=== PATIENT | female | born 1990 | race Caucasian/White ===

== ENCOUNTER 2018-03-29 11:46 | Emergency (ER) | payer BC ==
--- NOTE | 2018-03-29 12:03 | ERPHSYRPT ---
- History of Present Illness Time Seen by Provider: 03/29/18 12:03 Source: patient, family Exam Limitations: no limitations Physician History: The patient is a 27-year-old female with her complaining that she accidentally missed the outside step at her home yesterday evening at 11:30 PM, causing her to fall onto the outer aspect of her left foot. She went to bed immediately afterwards. She woke up this morning with swelling and pain in her left foot. She has not been able to walk on it. She took an Excedrin at 8:00 this morning. She did not put ice on the injured foot because it hurt too much. Occurred: yesterday Reason for Fall: lost balance, fell from height Injuries/Pain Location: lower extremity (left foot) Loss of Consciousness: no loss of consciousness Quality: sharpness, stabbing Severity of Pain-Max: moderate Severity of Pain-Current: moderate Modifying Factors: Improves With: nothing Associated Symptoms (Fall): trouble walking Allergies/Adverse Reactions: No Known Drug Allergies Allergy (Verified 03/29/18 12:13) Home Medications: No Home Meds [No Home Meds] 1 ea UD 01/08/15 [History] Hx Tetanus, Diphtheria Vaccination/Date Given: Yes Hx Influenza Vaccination/Date Given: No Hx Pneumococcal Vaccination/Date Given: No - Review of Systems Constitutional: No Fever, No Chills Eyes: No Symptoms Ears, Nose, & Throat: No Symptoms Respiratory: No Cough, No Dyspnea Cardiac: No Chest Pain, No Edema, No Syncope Abdominal/Gastrointestinal: No Abdominal Pain, No Nausea, No Vomiting, No Diarrhea Genitourinary Symptoms: No Dysuria Musculoskeletal: Fall, Injury Skin: No Rash Neurological: No Dizziness, No Focal Weakness, No Sensory Changes Psychological: No Symptoms Endocrine: No Symptoms Hematologic/Lymphatic: No Symptoms Immunological/Allergic: No Symptoms All Other Systems: Reviewed and Negative - Past Medical History Pertinent Past Medical History: Yes Respiratory History: Asthma Other Medical History: CHILDHOOD ASTHMA - Past Surgical History Past Surgical History: Yes Other Surgical History: TONSILS - Social History Smoking Status: Former smoker Exposure to second hand smoke: No Drug Use: none Patient Lives Alone: No - Nursing Vital Signs Nursing Vital Signs: Initial Vital Signs Temperature 99.1 F 03/29/18 11:56 Pulse Rate 106 H 03/29/18 11:56 Respiratory Rate 18 03/29/18 11:56 Blood Pressure 137/76 03/29/18 11:56 O2 Sat by Pulse Oximetry 99 03/29/18 11:56 Pain Scale Pain Intensity 10 - Tom Coma Score Best Eye Response (Tom): (4) open spontaneously Best Verbal Response (Volin): (5) oriented Best Motor Response (Volin): (6) obeys commands Tom Total: 15 - Physical Exam General Appearance: mild distress Head Injury: no evidence of injury Eye Exam: PERRL/EOMI ENT Exam: airway nml Neck Exam: normal inspection, No tenderness Respiratory/Chest Exam: normal breath sounds, No chest tenderness, No respiratory distress Cardiovascular Exam: normal heart sounds, regular rate/rhythm Gastrointestinal Exam: soft, No tenderness, No distention, No guarding, No ecchymosis Rectal Exam: not done Back Exam: normal inspection, No vertebral tenderness Extremity Exam: limited range of motion, pain with movement, swelling, tenderness, other (Examination of the left foot: The left fore foot is moderately swollen. There is exquisite tenderness to palpation of the lateral aspect of the forefoot. There is no numbness or neurologic deficit noted.) Neurologic Exam: alert, oriented x 3, cooperative, sensation nml, No motor deficits Skin Exam: normal color, warm, dry SpO2 Interpretation: normal Oxygen Delivery: Room Air - Radiology Exams Left Foot X-ray Interpretation: Interpreted by me, Negative, No Fracture, No Subluxation Ordered Tests: Active Orders 24 hr Category Date Time Status FOOT (MINIMUM 3 VIEWS) Stat Exams 03/29/18 12:09 Ordered Medication Summary Discontinued Medications Generic Name Dose Route Start Last Admin Trade Name Lilian PRN Reason Stop Dose Admin Ketorolac Tromethamine 60 mg 03/29/18 12:09 03/29/18 12:17 Toradol 30 Mg Injection IM 03/29/18 12:10 60 mg STAT ONE Administration Ketorolac Tromethamine Confirm 03/29/18 12:14 Toradol 30 Mg Injection Administered 03/29/18 12:15 Dose 60 mg .ROUTE .STK-MED ONE - Progress Progress: improved Progress Note: 03/29/18 12:45 pt declines narcotics. Counseled pt/family regarding: diagnosis, rad results - Departure Time of Disposition: 12:38 Departure Disposition: Home Clinical Impression: Sprain of left foot Condition: Stable Critical Care Time: No Referrals: DOCTOR,NO FAMILY [Primary Care Provider] - Additional Instructions: You have sprained your left foot. You were given Toradol 60 mg by IM in the ER. Apply the Abhilash bandage as needed. Use crutches as needed. Keep your foot elevated as needed. Apply ice 10-15 minutes 2-3 times a day. Take naproxen 500 mg every 12 hours as needed for pain. You may also take Tylenol 1000 mg every 6-8 hours as needed. Follow-up with your primary medical doctor as needed. Prescriptions: Naproxen 500 mg PO BID PRN #30 tablet
[2018-03-29 12:06] VITALS: BP 137/76; PULSE 106; O2SAT 99
[2018-03-29] MEDS ORDERED: TORAdol 30 mg Injection IM ONE (12:09)
[2018-03-29] MEDS ORDERED: TORAdol 30 mg Injection ONE (12:14)
--- NOTE | 2018-03-29 18:58 | XRAY ---
Indication: Lateral foot pain following injury. Comparison: None 3 nonweightbearing views of the left foot obtained. No bony, articular, or soft tissue abnormalities.
== END 2018-03-29 13:02 | disposition home or self-care (01) ==
LOC: ED 11:46
DX: S93.602A Unspecified sprain of left foot, initial encounter (principal); X50.1XXA Overexertion from prolonged static or awkward postures, initial encounter; Y93.01 Activity, walking, marching and hiking; Y92.008 Other place in unspecified non-institutional (private) residence as the place of occurrence of the external cause
CPT/HCPCS: 73630; 96372; 99284; J1885